=== PATIENT | female | born 2000 ===

== ENCOUNTER 2025-03-23 07:18 | Inpatient (IN) | payer OTHER ==
[~2025-03-23] VITALS: Ht 172.7 cm; Wt 83.5 kg
[2025-03-23 07:00] VITALS: BP 117/67
[2025-03-23] MEDS ORDERED: RINGERS SOLUTION,LACTATED 1,000 ML IV SCH (07:30)
[2025-03-23] MEDS ORDERED: OXYTOCIN 1,000 ML IV SCH (08:15)
[2025-03-23] MEDS ORDERED: CHLORHEXIDINE GLUCONATE 120 ML BOTTLE TOP ONE (08:15)
[2025-03-23] MEDS ORDERED: ACETAMINOPHEN 500 MG GEL..CAP PO PRN (08:15)
[2025-03-23 08:21] LABS: BASO % 0.3 % (0.1-1.2); EOS # 0.02 (0.04-0.54); EOS % 0.3 % (0.7-7.0); LYMPH # 2.47 (1.18-3.74); LYMPH % 34.0 % (19.3-53.1); MEAN PLATELET VOLUME 9.60 fl (9.4-12.4); MONO # 0.80 (0.24-0.82); MONO % 11.0 % (4.7-12.5); NEUT # 3.89 (1.56-6.13); NEUT % 53.4 % (34.0-71.1); RED CELL DISTRIBUTION WIDTH 15.2 % (11.6-14.4)
[2025-03-23 08:39] VITALS: BP 118/67
[2025-03-23 08:40] LABS: INR 0.97
[2025-03-23 08:45] VITALS: BP 116/68
[2025-03-23 09:00] VITALS: BP 112/63
[2025-03-23] MEDS ORDERED: PNV,CALCIUM 72/IRON/FOLIC ACID 1 TAB TABLET PO SCH (09:00)
[2025-03-23 09:02] LABS: ALT/SGPT 21.0 U/L (12-78); AST/SGOT 22.0 U/L (15-37); BILIRUBIN TOTAL 0.24 mg/dL (0.3-1.2); BUN CREA RATIO 14.0 (7.0-25.0); CREATININE SERUM 0.51 mg/dL (0.55-1.02); GFR 145.77; GLOBULINA 3.5 G/DL (2.4-3.5); GLUCOSE FASTING 108.0 mg/dL (65-100); OSMOLALITY SERUM 276.0 MOSM/KG (275-295)
[2025-03-23 11:42] LABS: BASO % 0.2 % (0.1-1.2); EOS # 0.00 (0.04-0.54); EOS % 0.0 % (0.7-7.0); LYMPH # 1.35 (1.18-3.74); LYMPH % 10.9 % (19.3-53.1); MEAN PLATELET VOLUME 9.20 fl (9.4-12.4); MONO # 1.20 (0.24-0.82); MONO % 9.7 % (4.7-12.5); NEUT # 9.69 (1.56-6.13); NEUT % 78.6 % (34.0-71.1); RED CELL DISTRIBUTION WIDTH 15.2 % (11.6-14.4)
[2025-03-23 13:31] VITALS: BP 94/64
[2025-03-23 16:00] VITALS: BP 95/61
[2025-03-24 01:34] VITALS: BP 96/65
[2025-03-24 03:00] VITALS: BP 125/78
[2025-03-24 08:00] VITALS: BP 107/72
[2025-03-24 16:04] VITALS: BP 90/60
[2025-03-25] VITALS: BP 100/65
[2025-03-25 09:36] VITALS: BP 99/67
== END 2025-03-25 14:33 | disposition home or self-care (01) | DRG 807 ==
LOC: LDR 07:18 → OB/GYN 07:18
PROVIDERS: ADMIT Obstetrics & Gynecology; ATTEND Obstetrics & Gynecology
PROC: 10E0XZZ Delivery of Products of Conception, External Approach (ICD-10-PCS; principal; 2025-03-23)
PROC: 4A1HXCZ Monitoring of Products of Conception, Cardiac Rate, External Approach (ICD-10-PCS; 2025-03-23)
DX: O80 Encounter for full-term uncomplicated delivery (principal); Z37.0 Single live birth; Z3A.39 39 weeks gestation of pregnancy